=== PATIENT | male | born 1935 | race Caucasian/White ===

== ENCOUNTER 2019-09-07 20:07 | Emergency (ER) | payer OTHER ==
[~2019-09-07] VITALS: Ht 172.7 cm; Wt 72.6 kg
== END 2019-09-07 23:30 | disposition home or self-care (01) ==
LOC: ER 20:07
DX: S20.211A Contusion of right front wall of thorax, initial encounter (principal); F17.210 Nicotine dependence, cigarettes, uncomplicated; W19.XXXA Unspecified fall, initial encounter
CPT/HCPCS: 71046; 99283-25